=== PATIENT | male | born 1985 | race Caucasian/White ===

== ENCOUNTER 2020-07-30 22:02 | Inpatient (IN) | payer SELFPAY ==
[~2020-07-30] VITALS: Ht 190.5 cm; Wt 114.1 kg
[2020-07-31] MEDS ORDERED: OMEPRAZOLE20 M1 PO (00:08)
[2020-07-31] MEDS ORDERED: ADIPEX-P37.5 M1 PO (00:09)
[2020-07-31 07:56] LABS: HEMOGLOBIN 14.2 gm/dl (14.0-17.5); RED BLOOD COUNT 5.07 M/UL (4.20-5.50); WHITE BLOOD COUNT 11.7 K/UL (4.5-11.0)
[2020-07-31 08:29] LABS: BUN/CREATININE RATIO 9 (0-10)
== END 2020-07-31 15:21 | disposition short-term general hospital (02) | DRG 280 ==
LOC: PROG CARE 07-31 00:04
PROVIDERS: ADMIT Internal Medicine
PROC: 4A023N7 Measurement of Cardiac Sampling and Pressure, Left Heart, Percutaneous Approach (ICD-10-PCS; principal; 2020-07-31)
PROC: B215YZZ Fluoroscopy of Left Heart using Other Contrast (ICD-10-PCS; 2020-07-31)
PROC: B211YZZ Fluoroscopy of Multiple Coronary Arteries using Other Contrast (ICD-10-PCS; 2020-07-31)
DX: I21.4 Non-ST elevation (NSTEMI) myocardial infarction (principal); I50.21 Acute systolic (congestive) heart failure; I20.0 Unstable angina; K21.9 Gastro-esophageal reflux disease without esophagitis; E66.3 Overweight; E78.5 Hyperlipidemia, unspecified; Z90.49 Acquired absence of other specified parts of digestive tract; Z80.9 Family history of malignant neoplasm, unspecified; E87.6 Hypokalemia; I25.5 Ischemic cardiomyopathy
CPT/HCPCS: ECHO; 36415; 80048; 80061; 82550; 82553; 83036; 84439; 84443; 84484; 85025; 93005; 93306; 99152; 99153; C1725; C1769; C1887; C1894; J0583; J1644; J1650; J2250; J3010; J3480; J7030; J7040; Q9967